=== PATIENT | female | born 1985 | race Two or more races ===

== ENCOUNTER 2024-08-02 08:54 | Inpatient (IN) | payer OTHER ==
[2024-08-02] VITALS (10 sets, daily range): BP systolic 115–163; BP diastolic 62–84; PULSE 72–90; RESP 19–22; TEMP 97.4–98.7; O2SAT 97–99
[~2024-08-02] VITALS: Ht 160 cm; Wt 84.8 kg
[2024-08-02 10:37] LABS: MEAN CORPUSCULAR HEMOGLOBIN 26.3 pg (26.0-34.0); MEAN CORPUSCULAR HGB CONC 30.5 G/dL (31.0-37.0); MEAN CORPUSCULAR VOLUME 86 fL (80-100); PLATELET COUNT (AUTO) 211 K/uL (150-450); RED BLOOD CELL COUNT(AUTO) 2.22 MIL/uL (4.00-5.20); RED CELL DISTRIBUTION WIDTH 16.1 % (11.5-14.5); WHITE BLOOD COUNT (AUTO) 13.7 K/uL (4.5-11.0)
[2024-08-02 10:42] LABS: ANION GAP 19 mmol/L (8-16); CARBON DIOXIDE 14 mmol/L (22-29); CHLORIDE 101 mmol/L (98-107); GLOMERULAR FILTR. RATE CALC 2 mL/min (>60); GLUCOSE,RANDOM 137 mg/dL (70-110); POTASSIUM 5.1 mmol/L (3.5-5.1); SODIUM SERUM 134 mmol/L (136-145)
[2024-08-02 10:45] LABS: HEMATOCRIT 19.1 % (36-46); HEMOGLOBIN 5.8 g/dL (12.0-16.0)
[2024-08-02 10:47] LABS: PROTHROMBIN TIME 10.9 SEC (9.4-11.6)
[2024-08-02 10:50] LABS: CREATINE KINASE, TOTAL ONLY 649 U/L (26-192); TROPONIN I-HIGH SENSITIVITY 38 ng/L (<51)
[2024-08-02 10:59] LABS: B-TYPE NATRIURETIC PEPTIDE 836 pg/mL (0-100)
[2024-08-02 11:02] LABS: BAND NEUTROPHILS % (MANUAL) 6 % (0-5); LYMPHOCYTES % (MANUAL) 8 % (22-44); METAMYELOCYTES % 3 % (0-0); MONOCYTES % (MANUAL) 5 % (2-9); MYELOCYTES % 1 % (0-0); SEGMENTED NEUTROPHILS % 77 % (40-70); TOTAL CELLS COUNTED 100
[2024-08-02 11:05] LABS: CALCIUM, TOTAL < 5.0 mg/dL (8.8-10.5); UREA NITROGEN, BLOOD 165 mg/dL (7-18)
[2024-08-02] MEDS ORDERED: DEXTROSE 50%-WATER 25 GM/50 ML SYRINGE IVP PRN (11:30)
[2024-08-02] MEDS ORDERED: FOLIC ACID/VIT B COMPLEX AND C TABLET PO SCH (11:45)
[2024-08-02] MEDS ORDERED: EPOETIN ALFA 10,000 UNITS/ML VIAL SQ SCH (12:00)
[2024-08-02 14:02] LABS: APPEARANCE,URINE TURBID (CLEAR); BILIRUBIN,URINE NEGATIVE (NEGATIVE); COLOR,URINE YELLOW (YELLOW); GLUCOSE, URINE (UA) 150-200 mg/dL (NEGATIVE); KETONES,URINE NEGATIVE (NEGATIVE); LEUKOCYTE ESTERASE ,URINE SMALL (NEGATIVE); NITRATE,URINE NEGATIVE (NEGATIVE); OCCULT BLOOD,URINE MODERATE (NEGATIVE); PROTEIN,URINE 300-600,SEE CONFIRM mg/dL (NEGATIVE); UROBILINOGEN,URINE <=1.0 mg/dL (<=1.0)
[2024-08-02 14:23] LABS: SULFOSALICYLIC ACID,URINE 3+ (Negative)
[2024-08-02 14:24] LABS: SQUAMOUS EPITHELIAL CELL,UR Moderate /LPF (None Seen)
[2024-08-02 14:27] LABS: BACTERIA,URINE Many /HPF (None Seen)
[2024-08-02] MEDS: CALCITRIOL 1 MCG/ML IVP SCH (16:53)
[2024-08-02] MEDS: SEVELAMER CARBONATE 800 MG TABLET PO ONE (16:53)
[2024-08-02] MEDS: CALCIUM GLUCONATE 0.465 MEQ/ML 10 ML VIAL IVP ONE (16:56)
[2024-08-02] MEDS: BUMETANIDE 0.25 MG/ML 4 ML VIAL IVP SCH (16:56)
[2024-08-02] MEDS: DOCUSATE SODIUM 100 MG CAPSULE PO SCH (21:00)
[2024-08-02] MEDS: INSULIN LISPRO 100 UNITS/ML SQ PRN (21:15)
[2024-08-02] MEDS: ACETAMINOPHEN 325 MG TABLET PO PRN (22:32)
[2024-08-02 23:45] LABS: GLUCOMETER DEV NAME(LOC) 6S.2; GLUCOSE,POINT OF CARE 176 MG/DL (70-110)
[2024-08-03] VITALS (16 sets, daily range): BP systolic 139–164; BP diastolic 63–83; PULSE 75–87; RESP 18–21; TEMP 97.3–99.3; O2SAT 95–96
[2024-08-03] MEDS: ONDANSETRON HCL 4 MG/2 ML VIAL IVP PRN (03:32)
[2024-08-03] MEDS: EPOETIN ALFA 10,000 UNITS/ML VIAL SQ ONE (06:38)
[2024-08-03 08:09] LABS: MEAN CORPUSCULAR HEMOGLOBIN 27.4 pg (26.0-34.0); MEAN CORPUSCULAR HGB CONC 31.8 G/dL (31.0-37.0); MEAN CORPUSCULAR VOLUME 86 fL (80-100); PLATELET COUNT (AUTO) 191 K/uL (150-450); RED BLOOD CELL COUNT(AUTO) 2.25 MIL/uL (4.00-5.20); RED CELL DISTRIBUTION WIDTH 15.7 % (11.5-14.5); WHITE BLOOD COUNT (AUTO) 12.5 K/uL (4.5-11.0)
[2024-08-03] MEDS: PANTOPRAZOLE SODIUM 40 MG DR TABLET PO SCH (08:09)
[2024-08-03] MEDS: FOLIC ACID/VIT B COMPLEX AND C TABLET PO SCH (08:10)
[2024-08-03 08:14] LABS: HEMOGLOBIN 6.2 g/dL (12.0-16.0)
[2024-08-03 08:15] LABS: HEMATOCRIT 19.4 % (36-46)
[2024-08-03 08:26] LABS: GLUCOMETER DEV NAME(LOC) 6S.1D; GLUCOSE,POINT OF CARE 200 MG/DL (70-110)
[2024-08-03] MEDS ORDERED: SODIUM CHLORIDE 0.9% 1,000 ML ONE (08:57)
[2024-08-03 09:41] LABS: BAND NEUTROPHILS % (MANUAL) 8 % (0-5); LYMPHOCYTES % (MANUAL) 7 % (22-44); METAMYELOCYTES % 2 % (0-0); MONOCYTES % (MANUAL) 5 % (2-9); SEGMENTED NEUTROPHILS % 78 % (40-70); TOTAL CELLS COUNTED 100
[2024-08-03 09:42] LABS: RBC MORPHOLOGY COMMENT ABNORMAL R
[2024-08-03] MEDS: GENTAMICIN SULFATE 0.1% 15 GM CREAM TP SCH (11:10)
[2024-08-03 12:06] LABS: GLUCOMETER DEV NAME(LOC) 6S.1D; GLUCOSE,POINT OF CARE 134 MG/DL (70-110)
[2024-08-03] MEDS: AmLODIPine BESYLATE 5 MG TABLET PO SCH (13:10)
[2024-08-03 14:37] LABS: HEMATOCRIT 22.1 % (36-46); HEMOGLOBIN 7.1 g/dL (12.0-16.0); MEAN CORPUSCULAR HEMOGLOBIN 27.6 pg (26.0-34.0); MEAN CORPUSCULAR HGB CONC 31.9 G/dL (31.0-37.0); MEAN CORPUSCULAR VOLUME 86 fL (80-100); PLATELET COUNT (AUTO) 185 K/uL (150-450); RED BLOOD CELL COUNT(AUTO) 2.56 MIL/uL (4.00-5.20); RED CELL DISTRIBUTION WIDTH 15.6 % (11.5-14.5); WHITE BLOOD COUNT (AUTO) 12.3 K/uL (4.5-11.0)
[2024-08-03 15:03] LABS: RBC MORPHOLOGY COMMENT ABNORMAL R
[2024-08-03 15:05] LABS: BAND NEUTROPHILS % (MANUAL) 7 % (0-5); LYMPHOCYTES % (MANUAL) 10 % (22-44); METAMYELOCYTES % 2 % (0-0); MONOCYTES % (MANUAL) 4 % (2-9); SEGMENTED NEUTROPHILS % 77 % (40-70); TOTAL CELLS COUNTED 100
[2024-08-03 18:46] LABS: GLUCOMETER DEV NAME(LOC) 6S.1D; GLUCOSE,POINT OF CARE 126 MG/DL (70-110)
[2024-08-03 21:21] LABS: GLUCOMETER DEV NAME(LOC) 6S.1D; GLUCOSE,POINT OF CARE 200 MG/DL (70-110)
[2024-08-04 06:04] VITALS: BP 142/87; PULSE 73; RESP 20; TEMP 97.5; O2SAT 98
[2024-08-04 06:40] LABS: BASOPHILS % (AUTO) 0.2 % (0.0-2.0); EOSINOPHILS % (AUTO) 0.8 % (1.0-6.0); HEMOGLOBIN 7.1 g/dL (12.0-16.0); LYMPHOCYTES # (AUTO) 0.7 K/uL (1.0-4.8); LYMPHOCYTES % (AUTO) 7.6 % (22.0-44.0); MEAN CORPUSCULAR HEMOGLOBIN 28.7 pg (26.0-34.0); MEAN CORPUSCULAR HGB CONC 33.6 G/dL (31.0-37.0); MEAN CORPUSCULAR VOLUME 85 fL (80-100); MONOCYTES # (AUTO) 0.7 K/uL (0.1-1.0); MONOCYTES % (AUTO) 7.7 % (2.0-9.0); NEUTROPHILS # (AUTO) 8.1 K/uL (1.8-7.7); NEUTROPHILS % (AUTO) 83.7 % (40.0-70.0); PLATELET COUNT (AUTO) 180 K/uL (150-450); RED BLOOD CELL COUNT(AUTO) 2.47 MIL/uL (4.00-5.20); RED CELL DISTRIBUTION WIDTH 15.8 % (11.5-14.5); WHITE BLOOD COUNT (AUTO) 9.7 K/uL (4.5-11.0)
[2024-08-04 08:05] VITALS: BP 148/65; PULSE 74; RESP 18; TEMP 98.1; O2SAT 96
[2024-08-04 08:46] LABS: GLUCOMETER DEV NAME(LOC) 6S.2; GLUCOSE,POINT OF CARE 132 MG/DL (70-110)
[2024-08-04 14:35] LABS: GLUCOMETER DEV NAME(LOC) 6S.1D; GLUCOSE,POINT OF CARE 134 MG/DL (70-110)
[2024-08-04 16:00] VITALS: BP 147/75; PULSE 80; RESP 18; TEMP 97.7
[2024-08-04 16:15] VITALS: BP 149/79; RESP 19
[2024-08-04 17:05] VITALS: BP 147/70; PULSE 73; RESP 18; O2SAT 96
[2024-08-04 19:20] VITALS: BP 154/67; PULSE 80; RESP 18; TEMP 98.4; O2SAT 95
[2024-08-05 04:56] VITALS: BP 156/72; PULSE 71; RESP 18; TEMP 98.1; O2SAT 98
[2024-08-05 06:01] LABS: GLUCOMETER DEV NAME(LOC) 6S.1D; GLUCOSE,POINT OF CARE 186 MG/DL (70-110)
[2024-08-05 06:01] LABS: GLUCOMETER DEV NAME(LOC) 6S.1D; GLUCOSE,POINT OF CARE 183 MG/DL (70-110)
[2024-08-05 06:01] LABS: GLUCOMETER DEV NAME(LOC) 6S.1D; GLUCOSE,POINT OF CARE 200 MG/DL (70-110)
[2024-08-05 07:20] LABS: BASOPHILS % (AUTO) 0.4 % (0.0-2.0); EOSINOPHILS % (AUTO) 0.6 % (1.0-6.0); HEMATOCRIT 22.8 % (36-46); HEMOGLOBIN 7.5 g/dL (12.0-16.0); LYMPHOCYTES # (AUTO) 0.6 K/uL (1.0-4.8); MEAN CORPUSCULAR HEMOGLOBIN 28.1 pg (26.0-34.0); MEAN CORPUSCULAR VOLUME 85 fL (80-100); MONOCYTES # (AUTO) 0.8 K/uL (0.1-1.0); MONOCYTES % (AUTO) 8.6 % (2.0-9.0); NEUTROPHILS # (AUTO) 7.7 K/uL (1.8-7.7); NEUTROPHILS % (AUTO) 83.4 % (40.0-70.0); PLATELET COUNT (AUTO) 214 K/uL (150-450); RED BLOOD CELL COUNT(AUTO) 2.68 MIL/uL (4.00-5.20); RED CELL DISTRIBUTION WIDTH 15.6 % (11.5-14.5); WHITE BLOOD COUNT (AUTO) 9.3 K/uL (4.5-11.0)
[2024-08-05 07:47] LABS: CREATININE 14.04 mg/dL (0.60-1.30); PHOSPHORUS 7.7 mg/dL (2.5-4.9); POTASSIUM 3.6 mmol/L (3.5-5.1)
[2024-08-05 08:00] VITALS: BP 155/72; PULSE 76; RESP 19; TEMP 98.2; O2SAT 96
[2024-08-05 08:16] LABS: CALCIUM, TOTAL 5.4 mg/dL (8.8-10.5)
[2024-08-05] MEDS ORDERED: SODIUM CHLORIDE 0.9% 250 ML IV ONE (11:16)
[2024-08-05] MEDS: CALCIUM GLUCONATE 2,000 MG in DEXTROSE 5%-WATER 50 ML IV ONE (11:31)
[2024-08-05 12:25] LABS: GLUCOMETER DEV NAME(LOC) 6S.1D; GLUCOSE,POINT OF CARE 154 MG/DL (70-110)
[2024-08-05] MEDS: CYCLOBENZAPRINE HCL 10 MG TABLET PO SCH (15:57)
[2024-08-05 16:05] VITALS: BP 155/72; PULSE 76; RESP 18; TEMP 98.2; O2SAT 97
[2024-08-05 16:30] VITALS: BP 155/72; PULSE 76; RESP 18; TEMP 98.2; O2SAT 97
[2024-08-05 19:27] VITALS: BP 158/73; PULSE 85; RESP 18; TEMP 98.2; O2SAT 98
[2024-08-06 03:30] VITALS: BP 154/74; PULSE 77; RESP 20; TEMP 98.1; O2SAT 96
[2024-08-06 07:29] LABS: CREATININE 13.79 mg/dL (0.60-1.30); POTASSIUM 3.3 mmol/L (3.5-5.1)
[2024-08-06 07:33] LABS: CALCIUM, TOTAL 5.7 mg/dL (8.8-10.5)
[2024-08-06 08:07] LABS: PARATHYROID HORMONE INTACT 145 pg/mL (15-65)
[2024-08-06 08:25] VITALS: BP 155/79; PULSE 79; RESP 18; TEMP 98.6; O2SAT 98
[2024-08-06] MEDS: AmLODIPine BESYLATE 10 MG TABLET PO SCH (08:28)
[2024-08-06] MEDS: CALCIUM CARBONATE 500 MG CHEWABLE TABLET CHEW SCH ×2 (09:54→20:16)
[2024-08-06] MEDS: CALCIUM GLUCONATE 2,000 MG in DEXTROSE 5%-WATER 50 ML IV ONE (10:46)
[2024-08-06 11:35] LABS: GLUCOMETER DEV NAME(LOC) 6S.1D; GLUCOSE,POINT OF CARE 187 MG/DL (70-110)
[2024-08-06 11:35] LABS: GLUCOMETER DEV NAME(LOC) 6S.1D; GLUCOSE,POINT OF CARE 213 MG/DL (70-110)
[2024-08-06] MEDS: POTASSIUM CHL 10 MEQ/WATER 50 ML IV SCH (17:24)
[2024-08-06] MEDS: FOLIC ACID/VIT B COMPLEX AND C TABLET PO SCH (17:24)
[2024-08-06 19:41] VITALS: BP 155/80; PULSE 96; RESP 18; TEMP 98.4; O2SAT 98
[2024-08-06 20:26] LABS: GLUCOMETER DEV NAME(LOC) 6N.2B; GLUCOSE,POINT OF CARE 167 MG/DL (70-110)
[2024-08-06 22:16] VITALS: BP 141/76; PULSE 84; RESP 20; TEMP 98.7; O2SAT 96
[2024-08-06 23:25] LABS: GLUCOMETER DEV NAME(LOC) 6S.1D; GLUCOSE,POINT OF CARE 150 MG/DL (70-110)
[2024-08-06 23:30] LABS: GLUCOMETER DEV NAME(LOC) 6S.2; GLUCOSE,POINT OF CARE 148 MG/DL (70-110)
[2024-08-06 23:30] LABS: GLUCOMETER DEV NAME(LOC) 6S.2; GLUCOSE,POINT OF CARE 137 MG/DL (70-110)
[2024-08-07 04:05] VITALS: BP 147/79; PULSE 83; RESP 18; TEMP 98.1; O2SAT 98
[2024-08-07 07:05] LABS: GLUCOMETER DEV NAME(LOC) 6S.2; GLUCOSE,POINT OF CARE 172 MG/DL (70-110)
[2024-08-07 07:58] LABS: CALCIUM, TOTAL 6.2 mg/dL (8.8-10.5); CREATININE 13.52 mg/dL (0.60-1.30); MAGNESIUM 1.6 mg/dL (1.80-2.40); PHOSPHORUS 6.5 mg/dL (2.5-4.9)
[2024-08-07 10:12] LABS: BASOPHILS % (AUTO) 0.6 % (0.0-2.0); EOSINOPHILS % (AUTO) 0.4 % (1.0-6.0); HEMATOCRIT 24.9 % (36-46); HEMOGLOBIN 8.2 g/dL (12.0-16.0); LYMPHOCYTES # (AUTO) 0.9 K/uL (1.0-4.8); LYMPHOCYTES % (AUTO) 10.2 % (22.0-44.0); MEAN CORPUSCULAR HEMOGLOBIN 28.4 pg (26.0-34.0); MEAN CORPUSCULAR HGB CONC 33.1 G/dL (31.0-37.0); MEAN CORPUSCULAR VOLUME 86 fL (80-100); MONOCYTES # (AUTO) 0.7 K/uL (0.1-1.0); MONOCYTES % (AUTO) 8.6 % (2.0-9.0); NEUTROPHILS # (AUTO) 6.7 K/uL (1.8-7.7); NEUTROPHILS % (AUTO) 80.2 % (40.0-70.0); PLATELET COUNT (AUTO) 249 K/uL (150-450); RED CELL DISTRIBUTION WIDTH 15.3 % (11.5-14.5); WHITE BLOOD COUNT (AUTO) 8.4 K/uL (4.5-11.0)
[2024-08-07] MEDS: MAGNESIUM OXIDE 400 MG TABLET PO ONE (10:57)
[2024-08-07 11:45] LABS: GLUCOMETER DEV NAME(LOC) 6N.2B; GLUCOSE,POINT OF CARE 200 MG/DL (70-110)
[2024-08-07 16:35] VITALS: BP 145/78; PULSE 94; RESP 18; TEMP 98.1; O2SAT 96
[2024-08-07 16:40] VITALS: BP 145/78; PULSE 93; RESP 21; O2SAT 96
[2024-08-07] MEDS: MAGNESIUM SULFATE 1 GM in DEXTROSE 5%-WATER 50 ML IV ONE (18:16)
[2024-08-07 20:10] VITALS: BP 148/78; PULSE 92; RESP 18; TEMP 98.1; O2SAT 68
[2024-08-07 20:20] LABS: GLUCOMETER DEV NAME(LOC) 6N.2B; GLUCOSE,POINT OF CARE 164 MG/DL (70-110)
[2024-08-08 04:51] LABS: GLUCOMETER DEV NAME(LOC) 6S.2; GLUCOSE,POINT OF CARE 168 MG/DL (70-110)
[2024-08-08 07:11] LABS: GLUCOMETER DEV NAME(LOC) 6N.2B; GLUCOSE,POINT OF CARE 130 MG/DL (70-110)
[2024-08-08 07:59] LABS: CREATININE 12.81 mg/dL (0.60-1.30); MAGNESIUM 1.7 mg/dL (1.80-2.40); PHOSPHORUS 6.1 mg/dL (2.5-4.9); POTASSIUM 3.8 mmol/L (3.5-5.1)
[2024-08-08 08:13] VITALS: BP 142/82; PULSE 84; RESP 18; TEMP 98.1; O2SAT 94
[2024-08-08] MEDS: CALCIUM ACETATE 667 MG CAPSULE PO SCH (16:58)
[2024-08-08 17:46] LABS: GLUCOMETER DEV NAME(LOC) 6N.2B; GLUCOSE,POINT OF CARE 158 MG/DL (70-110)
[2024-08-08 18:45] VITALS: BP 144/77; PULSE 88; RESP 18; TEMP 98.2; O2SAT 94
[2024-08-08 18:50] VITALS: BP 144/77; PULSE 88; RESP 18; O2SAT 95
[2024-08-08 19:20] VITALS: BP 155/68; PULSE 88; RESP 18; TEMP 97.9; O2SAT 97
[2024-08-08 20:20] LABS: GLUCOMETER DEV NAME(LOC) 6S.2; GLUCOSE,POINT OF CARE 132 MG/DL (70-110)
[2024-08-08] MEDS: BUMETANIDE 0.25 MG/ML 4 ML VIAL IVP SCH (20:21)
[2024-08-08 23:26] LABS: GLUCOMETER DEV NAME(LOC) 6S.1D; GLUCOSE,POINT OF CARE 174 MG/DL (70-110)
[2024-08-09 04:00] VITALS: BP 149/76; PULSE 83; RESP 18; TEMP 98.2; O2SAT 95
[2024-08-09 07:52] VITALS: BP 136/61; PULSE 83; RESP 18; TEMP 98.2; O2SAT 100
[2024-08-09 08:51] LABS: GLUCOMETER DEV NAME(LOC) 6S.1D; GLUCOSE,POINT OF CARE 160 MG/DL (70-110)
[2024-08-09 14:31] LABS: GLUCOMETER DEV NAME(LOC) 6S.1D; GLUCOSE,POINT OF CARE 149 MG/DL (70-110)
[2024-08-09 19:30] VITALS: BP 136/70; PULSE 88; RESP 18; TEMP 98.1; O2SAT 96
[2024-08-09 19:40] VITALS: BP 138/72; PULSE 88; RESP 18; O2SAT 96
[2024-08-09 20:05] LABS: GLUCOMETER DEV NAME(LOC) 6N.2B; GLUCOSE,POINT OF CARE 139 MG/DL (70-110)
[2024-08-09 20:14] VITALS: BP 149/76; PULSE 88; RESP 19; TEMP 97.7; O2SAT 98
[2024-08-10 00:31] LABS: GLUCOMETER DEV NAME(LOC) 6S.1D; GLUCOSE,POINT OF CARE 196 MG/DL (70-110)
[2024-08-10 04:51] VITALS: BP 138/67; PULSE 79; RESP 18; TEMP 97.7; O2SAT 96
[2024-08-10 07:00] VITALS: BP 156/71; PULSE 81; RESP 19; TEMP 97.9; O2SAT 99
[2024-08-10 07:55] LABS: GLUCOMETER DEV NAME(LOC) 6S.1D; GLUCOSE,POINT OF CARE 133 MG/DL (70-110)
[2024-08-10 15:31] LABS: GLUCOMETER DEV NAME(LOC) 6S.2; GLUCOSE,POINT OF CARE 159 MG/DL (70-110)
[2024-08-10 19:50] VITALS: BP 143/71; PULSE 85; RESP 18; TEMP 97.9; O2SAT 98
[2024-08-10 20:10] LABS: GLUCOMETER DEV NAME(LOC) 6S.2; GLUCOSE,POINT OF CARE 107 MG/DL (70-110)
[2024-08-10] MEDS: BUMETANIDE 1 MG TABLET PO SCH (20:37)
[2024-08-10 22:45] VITALS: BP 143/71; PULSE 85; RESP 18; TEMP 97.9; O2SAT 98
[2024-08-10 23:15] VITALS: BP 143/71; PULSE 85; RESP 18; O2SAT 98
[2024-08-10] MEDS: ONDANSETRON 4 MG TABLET PO PRN (23:45)
[2024-08-11 04:10] VITALS: BP 107/58; PULSE 80; RESP 16; TEMP 97.7; O2SAT 96
[2024-08-11 06:05] LABS: GLUCOMETER DEV NAME(LOC) 6S.2; GLUCOSE,POINT OF CARE 144 MG/DL (70-110)
[2024-08-11 06:05] LABS: GLUCOMETER DEV NAME(LOC) 6S.1D; GLUCOSE,POINT OF CARE 143 MG/DL (70-110)
[2024-08-11] MEDS: AmLODIPine BESYLATE 5 MG TABLET PO SCH ×2 (09:00→20:51)
[2024-08-11 10:13] VITALS: BP 170/86; PULSE 82; RESP 18; O2SAT 95
[2024-08-11] MEDS: PROCHLORPERAZINE EDISYLATE 5 MG/ML 2 ML VIAL IVP PRN (10:26)
[2024-08-11] MEDS ORDERED: SODIUM BICARBONATE 50 MEQ/50 ML VIAL ONE (10:36)
[2024-08-11] MEDS ORDERED: LIDOCAINE/PF 1% 30 ML VIAL ONE (10:36)
[2024-08-11 15:30] VITALS: BP_SYST 128; BP_SYST 129; BP_DIAS 69; BP_DIAS 70; PULSE 78; PULSE 79; RESP 18; TEMP 99.9; O2SAT 97; O2SAT 98
[2024-08-11 16:23] VITALS: TEMP 97.9
[2024-08-11 17:20] LABS: GLUCOMETER DEV NAME(LOC) 6S.2; GLUCOSE,POINT OF CARE 151 MG/DL (70-110)
[2024-08-11] MEDS: CALCITRIOL 0.25 MCG CAPSULE PO SCH (17:21)
[2024-08-11 19:55] LABS: GLUCOMETER DEV NAME(LOC) 6N.2B; GLUCOSE,POINT OF CARE 117 MG/DL (70-110)
[2024-08-11 20:07] VITALS: BP 155/87; PULSE 81; RESP 18; TEMP 98.1; O2SAT 96
[2024-08-12] VITALS (16 sets, daily range): BP systolic 138–188; BP diastolic 68–113; PULSE 73–91; RESP 18–19; TEMP 97.9–98.4; O2SAT 95–97
[2024-08-12] MEDS ORDERED: LIDOCAINE/PF 1% 30 ML VIAL ONE (08:12)
[2024-08-12] MEDS ORDERED: SODIUM BICARBONATE 50 MEQ/50 ML VIAL ONE (08:12)
[2024-08-12] MEDS: BUMETANIDE 1 MG TABLET PO SCH (08:19)
[2024-08-12] MEDS: AmLODIPine BESYLATE 5 MG TABLET PO SCH (08:20)
[2024-08-12] MEDS ORDERED: MIDAZOLAM HCL 2 MG/2 ML VIAL ONE (08:36)
[2024-08-12] MEDS ORDERED: FentaNYL CITRATE PF 100 MCG/2 ML VIAL ONE (08:36)
[2024-08-12] MEDS: LIDOCAINE 1% 30 ML/SOD BICARB 8.4% 4 ML SQ ONE (09:05)
[2024-08-12] MEDS: MIDAZOLAM HCL 2 MG/2 ML VIAL IVP ONE (09:06)
[2024-08-12] MEDS: FentaNYL CITRATE PF 100 MCG/2 ML VIAL IVP ONE (09:06)
[2024-08-12] MEDS: HEPARIN SODIUM,PORCINE 1,000 UNITS/ML 10 ML VIAL IVP ONE ×2 (09:17→09:27)
[2024-08-12] MEDS: SODIUM CHLORIDE 0.9% 500 ML IV ONE (09:17)
[2024-08-12 11:16] LABS: GLUCOMETER DEV NAME(LOC) 6N.2B; GLUCOSE,POINT OF CARE 116 MG/DL (70-110)
[2024-08-12 11:16] LABS: GLUCOMETER DEV NAME(LOC) 6N.2B; GLUCOSE,POINT OF CARE 170 MG/DL (70-110)
[2024-08-12] MEDS ORDERED: HEPARIN SODIUM,PORCINE 1,000 UNITS/ML VIAL ONE (12:00)
[2024-08-12] MEDS: ACETAMINOPHEN/CODEINE 300-30 MG TABLET PO PRN (16:28)
[2024-08-12] MEDS: AmLODIPine BESYLATE 5 MG TABLET PO ONE (17:53)
[2024-08-12] MEDS: CloNIDine HCL 0.1 MG TABLET PO PRN (18:34)
[2024-08-12 20:10] LABS: GLUCOMETER DEV NAME(LOC) 6S.1D; GLUCOSE,POINT OF CARE 113 MG/DL (70-110)
[2024-08-13 04:40] VITALS: BP 170/74; PULSE 76; RESP 19; TEMP 97.8; O2SAT 96
[2024-08-13 07:15] LABS: GLUCOMETER DEV NAME(LOC) 6S.2; GLUCOSE,POINT OF CARE 109 MG/DL (70-110)
[2024-08-13 07:15] LABS: GLUCOMETER DEV NAME(LOC) 6S.2; GLUCOSE,POINT OF CARE 134 MG/DL (70-110)
[2024-08-13 07:15] LABS: GLUCOMETER DEV NAME(LOC) 6S.2; GLUCOSE,POINT OF CARE 140 MG/DL (70-110)
[2024-08-13] MEDS: AmLODIPine BESYLATE 10 MG TABLET PO SCH (08:48)
[2024-08-13 09:36] VITALS: BP 177/77; PULSE 67; RESP 18; TEMP 97.7; O2SAT 98
[2024-08-13 09:54] VITALS: BP 147/72; RESP 18; O2SAT 96
[2024-08-13] MEDS: METOCLOPRAMIDE HCL 5 MG/ML 2 ML VIAL IVP ONE (15:45)
[2024-08-13 17:20] LABS: GLUCOMETER DEV NAME(LOC) 6S.1D; GLUCOSE,POINT OF CARE 126 MG/DL (70-110)
[2024-08-13 19:52] VITALS: BP 163/75; PULSE 73; RESP 18; TEMP 98.4; O2SAT 99
[2024-08-13 20:15] LABS: GLUCOMETER DEV NAME(LOC) 6S.2; GLUCOSE,POINT OF CARE 118 MG/DL (70-110)
[2024-08-14] VITALS (13 sets, daily range): BP systolic 136–184; BP diastolic 73–101; PULSE 69–81; RESP 18–20; TEMP 97.7–98.2; O2SAT 95–98
[2024-08-14 06:55] LABS: GLUCOMETER DEV NAME(LOC) 6S.2; GLUCOSE,POINT OF CARE 110 MG/DL (70-110)
[2024-08-14 07:51] LABS: GLUCOMETER DEV NAME(LOC) 6S.1D; GLUCOSE,POINT OF CARE 94 MG/DL (70-110)
[2024-08-14] MEDS ORDERED: SODIUM CHLORIDE 0.9% 1,000 ML ONE (10:57)
[2024-08-14 12:21] LABS: CREATININE 7.08 mg/dL (0.60-1.30); POTASSIUM 3.9 mmol/L (3.5-5.1)
[2024-08-14 12:22] LABS: MAGNESIUM 1.8 mg/dL (1.80-2.40); PHOSPHORUS 4.3 mg/dL (2.5-4.9)
[2024-08-14] MEDS: HEPARIN SODIUM,PORCINE 1,000 UNITS/ML VIAL IVCATH ONE ×2 (17:30→21:40)
[2024-08-14] MEDS ORDERED: PIPERACILLIN SODIUM/TAZOBACTAM 0.75 GM in DEXTROSE 5%-WATER 50 ML IV PRN (17:45)
[2024-08-14] MEDS ORDERED: VANCOMYCIN HCL 1 GM/D5% WATER 200 ML IV PRN (17:45)
[2024-08-14 17:59] LABS: BASOPHILS % (AUTO) 0.7 % (0.0-2.0); HEMATOCRIT 24.2 % (36-46); LYMPHOCYTES # (AUTO) 0.9 K/uL (1.0-4.8); MEAN CORPUSCULAR HEMOGLOBIN 28.4 pg (26.0-34.0); MEAN CORPUSCULAR HGB CONC 33.2 G/dL (31.0-37.0); MEAN CORPUSCULAR VOLUME 86 fL (80-100); MONOCYTES # (AUTO) 0.4 K/uL (0.1-1.0); MONOCYTES % (AUTO) 9.3 % (2.0-9.0); NEUTROPHILS # (AUTO) 3.4 K/uL (1.8-7.7); PLATELET COUNT (AUTO) 237 K/uL (150-450); RED BLOOD CELL COUNT(AUTO) 2.83 MIL/uL (4.00-5.20); RED CELL DISTRIBUTION WIDTH 15.2 % (11.5-14.5); WHITE BLOOD COUNT (AUTO) 4.8 K/uL (4.5-11.0)
[2024-08-14 18:09] LABS: CALCIUM, TOTAL 8.3 mg/dL (8.8-10.5); CREATININE 6.04 mg/dL (0.60-1.30); POTASSIUM 4.3 mmol/L (3.5-5.1)
[2024-08-14] MEDS: VANCOMYCIN HCL 1 GM/D5% WATER 200 ML IV ONE (19:10)
[2024-08-14] MEDS ORDERED: SODIUM CHLORIDE 0.9% 500 ML IV ONE (20:59)
[2024-08-14] MEDS: PIPERACILLIN SODIUM/TAZOBACTAM 2.25 GM in DEXTROSE 5%-WATER 50 ML IV SCH (21:27)
[2024-08-14] MEDS ORDERED: HEPARIN SODIUM,PORCINE 1,000 UNITS/ML VIAL IVP ONE (23:10)
[2024-08-15] VITALS: BP 160/80; PULSE 71; RESP 18; TEMP 97.9; O2SAT 96
[2024-08-15 04:50] VITALS: BP 166/76; PULSE 68; RESP 18; TEMP 98.1; O2SAT 99
[2024-08-15] MEDS ORDERED: -POST HEMODIALYSIS NOTE- MISC SCH (09:00)
[2024-08-15 09:24] VITALS: BP 143/66; PULSE 80; RESP 18; TEMP 98.1; O2SAT 98
[2024-08-15 12:00] LABS: GLUCOMETER DEV NAME(LOC) 6S.1D; GLUCOSE,POINT OF CARE 153 MG/DL (70-110)
[2024-08-15 18:30] LABS: GLUCOMETER DEV NAME(LOC) 6S.2; GLUCOSE,POINT OF CARE 103 MG/DL (70-110)
[2024-08-15 18:36] LABS: GLUCOMETER DEV NAME(LOC) 6S.1D; GLUCOSE,POINT OF CARE 101 MG/DL (70-110)
[2024-08-15 18:36] LABS: GLUCOMETER DEV NAME(LOC) 6N.2B; GLUCOSE,POINT OF CARE 115 MG/DL (70-110)
[2024-08-15 19:45] VITALS: BP 142/66; PULSE 81; RESP 18; TEMP 98.2; O2SAT 98
[2024-08-15 21:55] LABS: GLUCOMETER DEV NAME(LOC) 6N.2B; GLUCOSE,POINT OF CARE 141 MG/DL (70-110)
[2024-08-16 04:10] VITALS: BP 157/66; PULSE 80; RESP 18; TEMP 98; O2SAT 98
[2024-08-16 07:20] LABS: GLUCOMETER DEV NAME(LOC) 6S.1D; GLUCOSE,POINT OF CARE 96 MG/DL (70-110)
[2024-08-16 07:30] VITALS: BP 162/80; PULSE 85; RESP 18; TEMP 98.2; O2SAT 98
[2024-08-16] MEDS: VANCOMYCIN HCL 1 GM/D5% WATER 200 ML IV ONE (11:29)
[2024-08-16 18:40] LABS: GLUCOMETER DEV NAME(LOC) 6S.1D; GLUCOSE,POINT OF CARE 124 MG/DL (70-110)
[2024-08-16 18:46] LABS: GLUCOMETER DEV NAME(LOC) 6N.2B; GLUCOSE,POINT OF CARE 122 MG/DL (70-110)
[2024-08-16 19:23] VITALS: BP 151/68; PULSE 80; RESP 18; TEMP 98.6; O2SAT 96
[2024-08-16 21:45] LABS: GLUCOMETER DEV NAME(LOC) 6N.2B; GLUCOSE,POINT OF CARE 152 MG/DL (70-110)
[2024-08-17] VITALS (13 sets, daily range): BP systolic 149–178; BP diastolic 64–88; PULSE 80–101; RESP 18–20; TEMP 97.7–98.4; O2SAT 97–98
[2024-08-17 08:35] LABS: GLUCOMETER DEV NAME(LOC) 6N.2B; GLUCOSE,POINT OF CARE 89 MG/DL (70-110)
[2024-08-17] MEDS ORDERED: SODIUM CHLORIDE 0.9% 2,000 ML ONE (18:00)
[2024-08-17 18:05] LABS: GLUCOMETER DEV NAME(LOC) 6N.2B; GLUCOSE,POINT OF CARE 111 MG/DL (70-110)
[2024-08-17 18:16] LABS: GLUCOMETER DEV NAME(LOC) 6S.1D; GLUCOSE,POINT OF CARE 115 MG/DL (70-110)
[2024-08-17] MEDS: HEPARIN SODIUM,PORCINE 1,000 UNITS/ML VIAL IVCATH ONE ×2 (22:21)
[2024-08-17 23:26] LABS: GLUCOMETER DEV NAME(LOC) 6S.1D; GLUCOSE,POINT OF CARE 169 MG/DL (70-110)
[2024-08-18 06:24] VITALS: BP 170/87; PULSE 87; RESP 18; TEMP 99; O2SAT 99
[2024-08-18 06:54] VITALS: BP 158/68; PULSE 77; RESP 16; TEMP 98.9; O2SAT 99
[2024-08-18 08:56] VITALS: BP 154/78; PULSE 74; RESP 18; TEMP 98.1; O2SAT 98
[2024-08-18 11:36] LABS: GLUCOMETER DEV NAME(LOC) 6N.2B; GLUCOSE,POINT OF CARE 106 MG/DL (70-110)
[2024-08-18 12:30] LABS: GLUCOMETER DEV NAME(LOC) 6S.1D; GLUCOSE,POINT OF CARE 109 MG/DL (70-110)
[2024-08-18] MEDS ORDERED: AMLO-258 PO (16:23)
[2024-08-18] MEDS ORDERED: BUME1TAB50 PO (16:25)
[2024-08-18] MEDS ORDERED: PHOSLOC PO (16:26)
[2024-08-18] MEDS ORDERED: CALC0.5C11 PO (16:26)
[2024-08-18] MEDS ORDERED: PANT-31 PO (16:27)
[2024-08-18] MEDS ORDERED: FOLI0.8T54 PO (16:27)
[2024-08-18] MEDS ORDERED: CALC500T37 PO (16:27)
[2024-08-18] MEDS ORDERED: PIPE2.2562 IV (16:28)
[2024-08-18] MEDS ORDERED: ACET-2247 PO (16:29)
[2024-08-18] MEDS ORDERED: CLON0.1T2 PO (16:30)
[2024-08-18] MEDS ORDERED: INSU100V SQ (16:35)
[2024-08-18] MEDS ORDERED: ONDA-104 PO (16:36)
[2024-08-18] MEDS ORDERED: PROC5TAB54 IVP (16:37)
[2024-08-18] MEDS ORDERED: VANC125C19 IV (16:41)
[2024-08-19 11:45] LABS: GLUCOMETER DEV NAME(LOC) 6N.2B; GLUCOSE,POINT OF CARE 130 MG/DL (70-110)
== END 2024-08-18 20:55 | DRG 640 ==
LOC: EMS 08:59 → EDH 18:11 → 6S 18:48
PROVIDERS: ADMIT Internal Medicine; ATTEND Internal Medicine
PROC: 30233N1 Transfusion of Nonautologous Red Blood Cells into Peripheral Vein, Percutaneous Approach (ICD-10-PCS; principal; 2024-08-02)
PROC: 3E1M39Z Irrigation of Peritoneal Cavity using Dialysate, Percutaneous Approach (ICD-10-PCS; 2024-08-02)
PROC: 3E1M39Z Irrigation of Peritoneal Cavity using Dialysate, Percutaneous Approach (ICD-10-PCS; 2024-08-03)
PROC: 3E1M39Z Irrigation of Peritoneal Cavity using Dialysate, Percutaneous Approach (ICD-10-PCS; 2024-08-04)
PROC: 3E1M39Z Irrigation of Peritoneal Cavity using Dialysate, Percutaneous Approach (ICD-10-PCS; 2024-08-05)
PROC: 3E1M39Z Irrigation of Peritoneal Cavity using Dialysate, Percutaneous Approach (ICD-10-PCS; 2024-08-06)
PROC: 3E1M39Z Irrigation of Peritoneal Cavity using Dialysate, Percutaneous Approach (ICD-10-PCS; 2024-08-07)
PROC: 3E1M39Z Irrigation of Peritoneal Cavity using Dialysate, Percutaneous Approach (ICD-10-PCS; 2024-08-08)
PROC: 3E1M39Z Irrigation of Peritoneal Cavity using Dialysate, Percutaneous Approach (ICD-10-PCS; 2024-08-09)
PROC: 3E1M39Z Irrigation of Peritoneal Cavity using Dialysate, Percutaneous Approach (ICD-10-PCS; 2024-08-10)
PROC: 3E1M39Z Irrigation of Peritoneal Cavity using Dialysate, Percutaneous Approach (ICD-10-PCS; 2024-08-11)
PROC: 0JH63XZ Insertion of Tunneled Vascular Access Device into Chest Subcutaneous Tissue and Fascia, Percutaneous Approach (ICD-10-PCS; 2024-08-12)
PROC: 02HV33Z Insertion of Infusion Device into Superior Vena Cava, Percutaneous Approach (ICD-10-PCS; 2024-08-12)
PROC: B548ZZA Ultrasonography of Superior Vena Cava, Guidance (ICD-10-PCS; 2024-08-12)
PROC: 5A1D70Z Performance of Urinary Filtration, Intermittent, Less than 6 Hours Per Day (ICD-10-PCS; 2024-08-12)
PROC: 5A1D70Z Performance of Urinary Filtration, Intermittent, Less than 6 Hours Per Day (ICD-10-PCS; 2024-08-14)
PROC: 5A1D70Z Performance of Urinary Filtration, Intermittent, Less than 6 Hours Per Day (ICD-10-PCS; 2024-08-17)
DX: E87.70 Fluid overload, unspecified (principal); N18.6 End stage renal disease; E11.52 Type 2 diabetes mellitus with diabetic peripheral angiopathy with gangrene; I12.0 Hypertensive chronic kidney disease with stage 5 chronic kidney disease or end stage renal disease; M86.8X7 Other osteomyelitis, ankle and foot; L97.419 Non-pressure chronic ulcer of right heel and midfoot with unspecified severity; E87.1 Hypo-osmolality and hyponatremia; E87.20 Acidosis, unspecified; E11.69 Type 2 diabetes mellitus with other specified complication; E11.22 Type 2 diabetes mellitus with diabetic chronic kidney disease; E11.621 Type 2 diabetes mellitus with foot ulcer; Z99.2 Dependence on renal dialysis; D63.1 Anemia in chronic kidney disease; N25.0 Renal osteodystrophy; E66.9 Obesity, unspecified; E83.39 Other disorders of phosphorus metabolism; E83.51 Hypocalcemia; E87.6 Hypokalemia; Z83.3 Family history of diabetes mellitus; Z68.33 Body mass index [BMI] 33.0-33.9, adult
CPT/HCPCS: 36245; 36561; 71045; 73718; 76000; 80048; 80202; 81001; 81002; 82550; 82962; 83735; 83880; 83970; 84100; 84484; 84703; 85025; 85610; 85730; 86850; 86900; 86901; 86923; 87081; 87086; 87340; 90935; 90945; 93005; 93925; 93971; 96374; 96375; 99285; J0610; J0636; J0780; J0885; J1644; J2250; J2405; J2543; J2765; J3010; J3370; J3475; J3480; J3490; J7030; J7040; J7050; J7060; P9016; Q0162; 36415-L1; 36415-TC

== ENCOUNTER 2024-10-16 09:08 | Inpatient (IN) | payer OTHER ==
[~2024-10-16] VITALS: Ht 167.6 cm; Wt 76.4 kg
[~2024-10-16 09:08] MED LIST: ACET-2247 PO; AMLO-258 PO; BUME1TAB50 PO; CALC0.5C11 PO; CALC500T37 PO; CLON0.1T2 PO; FOLI0.8T54 PO; INSU100V SQ; ONDA-104 PO; PANT-31 PO; PHOSLOC PO; PIPE2.2562 IV; PROC5TAB54 IVP; VANC125C19 IV
[2024-10-16 09:35] LABS: BASOPHILS % (AUTO) 0.7 % (0.0-2.0); EOSINOPHILS % (AUTO) 3.4 % (1.0-6.0); HEMATOCRIT 35.3 % (36-46); LYMPHOCYTES % (AUTO) 16.9 % (22.0-44.0); MEAN CORPUSCULAR HEMOGLOBIN 29.8 pg (26.0-34.0); MEAN CORPUSCULAR HGB CONC 33.9 G/dL (31.0-37.0); MEAN CORPUSCULAR VOLUME 88 fL (80-100); MONOCYTES # (AUTO) 0.6 K/uL (0.1-1.0); MONOCYTES % (AUTO) 10.6 % (2.0-9.0); NEUTROPHILS % (AUTO) 68.4 % (40.0-70.0); PLATELET COUNT (AUTO) 224 K/uL (150-450); RED BLOOD CELL COUNT(AUTO) 4.02 MIL/uL (4.00-5.20); RED CELL DISTRIBUTION WIDTH 14.8 % (11.5-14.5); WHITE BLOOD COUNT (AUTO) 5.9 K/uL (4.5-11.0)
[2024-10-16 09:46] LABS: CREATININE 6.12 mg/dL (0.60-1.30); POTASSIUM 3.9 mmol/L (3.5-5.1)
[2024-10-16] MEDS ORDERED: MORPHINE SULFATE 2 MG/ML SYRINGE IVP PRN (13:15)
[2024-10-16] MEDS ORDERED: ONDANSETRON HCL 4 MG/2 ML VIAL IVP PRN (13:15)
[2024-10-16] MEDS ORDERED: HYDROCODONE/ACETAMINOPHEN 5-325 MG TABLET PO PRN (13:15)
[2024-10-16] MEDS ORDERED: MAGNESIUM HYDROXIDE SUSPENSION 30 ML UDCUP PO PRN (13:15)
[2024-10-16] MEDS ORDERED: BISACODYL 10 MG RECTAL RECTAL SUPPOSITORY PR PRN (13:15)
[2024-10-16] MEDS ORDERED: ZOLPIDEM TARTRATE 5 MG TABLET PO PRN (13:15)
[2024-10-16] MEDS: HEPARIN SODIUM,PORCINE 5,000 UNITS/ML VIAL SQ SCH (15:28)
[2024-10-16] MEDS: CALCIUM ACETATE 667 MG CAPSULE PO SCH (18:17)
[2024-10-16 20:00] VITALS: BP 155/56; PULSE 66; RESP 18; TEMP 97.5; O2SAT 99
[2024-10-16] MEDS: DOCUSATE SODIUM 100 MG CAPSULE PO SCH (20:21)
[2024-10-16] MEDS: ACETAMINOPHEN 325 MG TABLET PO PRN (20:28)
[2024-10-16] MEDS: BUMETANIDE 1 MG TABLET PO SCH (22:29)
[2024-10-17] VITALS (16 sets, daily range): BP systolic 130–191; BP diastolic 73–96; PULSE 61–83; RESP 18–20; TEMP 98.1–98.4; O2SAT 97–98
[2024-10-17] MEDS: CloNIDine HCL 0.1 MG TABLET PO PRN (03:47)
[2024-10-17 07:55] LABS: BASOPHILS % (AUTO) 0.8 % (0.0-2.0); EOSINOPHILS % (AUTO) 4.2 % (1.0-6.0); HEMATOCRIT 32.7 % (36-46); LYMPHOCYTES # (AUTO) 1.2 K/uL (1.0-4.8); LYMPHOCYTES % (AUTO) 23.4 % (22.0-44.0); MEAN CORPUSCULAR HEMOGLOBIN 29.7 pg (26.0-34.0); MEAN CORPUSCULAR HGB CONC 33.7 G/dL (31.0-37.0); MEAN CORPUSCULAR VOLUME 88 fL (80-100); MONOCYTES # (AUTO) 0.6 K/uL (0.1-1.0); MONOCYTES % (AUTO) 11.6 % (2.0-9.0); PLATELET COUNT (AUTO) 194 K/uL (150-450); RED BLOOD CELL COUNT(AUTO) 3.72 MIL/uL (4.00-5.20); RED CELL DISTRIBUTION WIDTH 14.7 % (11.5-14.5)
[2024-10-17 07:57] LABS: CALCIUM, TOTAL 7.6 mg/dL (8.8-10.5); CREATININE 7.83 mg/dL (0.60-1.30); POTASSIUM 3.9 mmol/L (3.5-5.1)
[2024-10-17] MEDS: AmLODIPine BESYLATE 10 MG TABLET PO SCH (08:11)
[2024-10-17] MEDS: FOLIC ACID/VIT B COMPLEX AND C TABLET PO SCH (08:13)
[2024-10-17] MEDS: PANTOPRAZOLE SODIUM 40 MG DR TABLET PO SCH (08:13)
[2024-10-17] MEDS: paricalcitoL 1 MCG CAPSULE PO SCH (08:13)
[2024-10-17] MEDS ORDERED: BUPIVACAINE 0.25%/EPI 1:200,000/PF 10 ML VIAL ONE (11:10)
[2024-10-17] MEDS ORDERED: SODIUM CHLORIDE 0.9% 1,000 ML ONE ×2 (11:11→18:09)
[2024-10-17] MEDS ORDERED: FentaNYL CITRATE PF 100 MCG/2 ML VIAL ONE (12:00)
[2024-10-17] MEDS ORDERED: MIDAZOLAM HCL 2 MG/2 ML VIAL ONE (12:00)
[2024-10-17] MEDS ORDERED: BUPIVACAINE HCL/PF 0.5% 30 ML VIAL ONE (12:16)
[2024-10-17] MEDS ORDERED: MEPERIDINE-PF 25 MG/ML VIAL IVP PRN (12:30)
[2024-10-17] MEDS ORDERED: HYDROmorphone HCL 2 MG/ML SYRINGE IVP PRN (12:30)
[2024-10-17] MEDS ORDERED: FentaNYL CITRATE PF 100 MCG/2 ML VIAL IVP PRN (12:30)
[2024-10-17] MEDS: LIDOCAINE/PF 2% 5 ML VIAL ONE (12:48)
[2024-10-17] MEDS ORDERED: LIDOCAINE/PF 1% 2 ML VIAL ONE (18:00)
[2024-10-17] MEDS: HEPARIN SODIUM,PORCINE 1,000 UNITS/ML VIAL IVCATH ONE ×2 (23:14)
[2024-10-18 05:24] VITALS: BP 166/76; PULSE 67; RESP 18; TEMP 98.4; O2SAT 98
[2024-10-18 08:43] VITALS: BP 166/76; PULSE 66; RESP 18; TEMP 97.9; O2SAT 99
[2024-10-18 08:43] LABS: BASOPHILS % (AUTO) 0.3 % (0.0-2.0); EOSINOPHILS % (AUTO) 2.5 % (1.0-6.0); HEMATOCRIT 32.5 % (36-46); LYMPHOCYTES % (AUTO) 16.8 % (22.0-44.0); MEAN CORPUSCULAR HEMOGLOBIN 29.7 pg (26.0-34.0); MEAN CORPUSCULAR HGB CONC 33.9 G/dL (31.0-37.0); MEAN CORPUSCULAR VOLUME 88 fL (80-100); MONOCYTES # (AUTO) 0.5 K/uL (0.1-1.0); MONOCYTES % (AUTO) 7.6 % (2.0-9.0); NEUTROPHILS # (AUTO) 4.5 K/uL (1.8-7.7); NEUTROPHILS % (AUTO) 72.8 % (40.0-70.0); PLATELET COUNT (AUTO) 198 K/uL (150-450); RED CELL DISTRIBUTION WIDTH 14.6 % (11.5-14.5); WHITE BLOOD COUNT (AUTO) 6.2 K/uL (4.5-11.0)
[2024-10-18 08:51] LABS: CALCIUM, TOTAL 7.8 mg/dL (8.8-10.5); CREATININE 6.14 mg/dL (0.60-1.30); POTASSIUM 4.4 mmol/L (3.5-5.1)
[2024-10-18] MEDS: OXYGEN THERAPY IH SCH (09:54)
[2024-10-18 13:02] VITALS: BP 150/72; PULSE 68; O2SAT 98
[2024-10-18] MEDS ORDERED: CARV3 PO (13:32)
[2024-10-18] MEDS ORDERED: PARI1CAP11 PO (13:32)
[2024-10-18] MEDS ORDERED: carvediloL 3.125 MG TABLET PO SCH (21:00)
== END 2024-10-18 20:45 | DRG 981 ==
LOC: EMS 09:12 → EDH 13:10 → 6S 20:03
PROVIDERS: ADMIT Internal Medicine; ATTEND Internal Medicine
PROC: 5A1D70Z Performance of Urinary Filtration, Intermittent, Less than 6 Hours Per Day (ICD-10-PCS; 2024-10-17)
PROC: 0WPG33Z Removal of Infusion Device from Peritoneal Cavity, Percutaneous Approach (ICD-10-PCS; principal; 2024-10-17 12:00)
DX: I13.2 Hypertensive heart and chronic kidney disease with heart failure and with stage 5 chronic kidney disease, or end stage renal disease (principal); N18.6 End stage renal disease; E46 Unspecified protein-calorie malnutrition; R64 Cachexia; N25.81 Secondary hyperparathyroidism of renal origin; I50.9 Heart failure, unspecified; K21.9 Gastro-esophageal reflux disease without esophagitis; E83.51 Hypocalcemia; E83.39 Other disorders of phosphorus metabolism; E11.22 Type 2 diabetes mellitus with diabetic chronic kidney disease; I16.0 Hypertensive urgency; R62.7 Adult failure to thrive; E78.5 Hyperlipidemia, unspecified; Z82.49 Family history of ischemic heart disease and other diseases of the circulatory system; Z79.899 Other long term (current) drug therapy; Z99.2 Dependence on renal dialysis; Z68.27 Body mass index [BMI] 27.0-27.9, adult
CPT/HCPCS: 80048; 84703; 85025; 87081; 87340; 88300; 90935; 99285; J1644; J2250; J3010; J3490; J7030

== ENCOUNTER 2025-01-22 09:13 | Inpatient (IN) | payer OTHER ==
[~2025-01-22] VITALS: Ht 157.5 cm; Wt 76.3 kg
[~2025-01-22 09:13] MED LIST changes: -ACET-2247 PO; +CARV3 PO; +PARI1CAP11 PO; -PIPE2.2562 IV; -PROC5TAB54 IVP; -VANC125C19 IV
[2025-01-22] MEDS ORDERED: CARV12.530 PO (09:43)
[2025-01-22] MEDS ORDERED: TRAZ-252 PO (09:43)
[2025-01-22] MEDS ORDERED: CARV25 PO (09:43)
[2025-01-22] MEDS ORDERED: SERT-158 PO (09:43)
[2025-01-22] MEDS ORDERED: PRED5DRO25 OS (09:43)
[2025-01-22] MEDS ORDERED: SODI10PO3 PO (09:43)
[2025-01-22] MEDS ORDERED: HYDR50TA36 PO ×2 (09:43)
[2025-01-22] MEDS ORDERED: CALC0.253 PO (09:43)
[2025-01-22 09:49] LABS: PLATELET COUNT (AUTO) 216 K/uL (150-450); RED BLOOD CELL COUNT(AUTO) 3.73 MIL/uL (4.00-5.20); RED CELL DISTRIBUTION WIDTH 13.6 % (11.5-14.5); WHITE BLOOD COUNT (AUTO) 5.3 K/uL (4.5-11.0)
[2025-01-22 09:54] LABS: CALCIUM, TOTAL 8.2 mg/dL (8.8-10.5); CREATININE 5.43 mg/dL (0.60-1.30); GLOMERULAR FILTR. RATE CALC 9.0 mL/min (>60); GLUCOSE,RANDOM 175.0 mg/dL (70-110); SODIUM SERUM 135.0 mmol/L (136-145); UREA NITROGEN, BLOOD 43.0 mg/dL (7-18)
[2025-01-22] MEDS ORDERED: ACETAMINOPHEN 325 MG TABLET PO PRN (11:00)
[2025-01-22] MEDS ORDERED: ONDANSETRON HCL 4 MG/2 ML VIAL IVP PRN (11:00)
[2025-01-22] MEDS ORDERED: OxyCODONE HCL/ACETAMINOPHEN 5-325 MG TABLET PO PRN (11:00)
[2025-01-22] MEDS ORDERED: BISACODYL 10 MG RECTAL RECTAL SUPPOSITORY PR PRN (11:00)
[2025-01-22 13:17] VITALS: BP 128/77; PULSE 68; RESP 18; TEMP 98.2; O2SAT 99
[2025-01-22] MEDS: HEPARIN SODIUM,PORCINE 5,000 UNITS/ML VIAL SQ SCH (15:31)
[2025-01-22 19:44] VITALS: BP 130/71; PULSE 70; RESP 18; TEMP 98.4; O2SAT 99
[2025-01-22] MEDS: PrednisoLONE ACETATE 1% 5 ML OPHTHALMIC SUSPENSION OS SCH (20:35)
[2025-01-22] MEDS: DOCUSATE SODIUM 100 MG CAPSULE PO SCH (20:35)
[2025-01-23] VITALS (12 sets, daily range): BP systolic 110–165; BP diastolic 66–92; PULSE 62–74; RESP 18–20; TEMP 97.3–97.9; O2SAT 96–100
[2025-01-23] MEDS: ZOLPIDEM TARTRATE 5 MG TABLET PO PRN (00:08)
[2025-01-23] MEDS: FAMOTIDINE 20 MG TABLET PO SCH (08:01)
[2025-01-23] MEDS ORDERED: SODIUM CHLORIDE 0.9% 2,000 ML ONE (10:41)
[2025-01-23] MEDS ORDERED: INSULIN LISPRO 100 UNITS/ML SQ PRN (11:45)
[2025-01-23] MEDS ORDERED: DEXTROSE 50%-WATER 25 GM/50 ML SYRINGE IVP PRN (11:45)
[2025-01-23] MEDS: CALCIUM ACETATE 667 MG CAPSULE PO SCH (12:16)
[2025-01-23] MEDS: HEPARIN SODIUM,PORCINE 1,000 UNITS/ML VIAL IVCATH ONE ×2 (15:02)
[2025-01-23] MEDS: ALBUMIN HUMAN 25%-12.5GM/50ML IV BOTTLE IV PRN (15:03)
[2025-01-24 04:18] VITALS: BP 142/79; PULSE 70; RESP 18; TEMP 97.7; O2SAT 100
[2025-01-24 08:46] VITALS: BP 161/89; PULSE 75; RESP 20; TEMP 97.7; O2SAT 100
[2025-01-24 09:25] VITALS: BP 127/74; PULSE 72; RESP 18; O2SAT 100
[2025-01-24 19:25] VITALS: BP 112/61; PULSE 73; RESP 18; TEMP 98.2; O2SAT 98
[2025-01-25] VITALS (13 sets, daily range): BP systolic 96–176; BP diastolic 66–113; PULSE 61–87; RESP 18–20; TEMP 97.7–98.4; O2SAT 96–98
[2025-01-25] MEDS ORDERED: HEPARIN SODIUM,PORCINE 1,000 UNITS/ML VIAL ONE (11:07)
[2025-01-25] MEDS ORDERED: HEPARIN SODIUM,PORCINE 1,000 UNITS/ML VIAL IVCATH ONE (19:00)
[2025-01-25 19:30] LABS: CALCIUM, TOTAL 8.3 mg/dL (8.8-10.5); CREATININE 4.55 mg/dL (0.60-1.30); GLOMERULAR FILTR. RATE CALC 11.0 mL/min (>60); GLUCOSE,RANDOM 106.0 mg/dL (70-110); SODIUM SERUM 135.0 mmol/L (136-145); UREA NITROGEN, BLOOD 37.0 mg/dL (7-18)
[2025-01-25] MEDS: HEPARIN SODIUM,PORCINE 1,000 UNITS/ML VIAL IVCATH ONE ×2 (19:39)
[2025-01-26] VITALS (15 sets, daily range): BP systolic 71–151; BP diastolic 51–96; PULSE 68–83; RESP 17–18; TEMP 97.9–98.4; O2SAT 95–99
[2025-01-26] MEDS ORDERED: SODIUM CHLORIDE 0.9% 1,000 ML ONE ×2 (06:07)
[2025-01-26 07:28] LABS: CREATININE 6.69 mg/dL (0.60-1.30); GLOMERULAR FILTR. RATE CALC 7.0 mL/min (>60)
[2025-01-26] MEDS: HEPARIN SODIUM,PORCINE 1,000 UNITS/ML VIAL IVCATH ONE ×2 (10:00)
[2025-01-26] MEDS: SODIUM CHLORIDE 0.9% 250 ML IV ONE ×2 (11:30→16:24)
[2025-01-26] MEDS ORDERED: HEPARIN SODIUM,PORCINE 1,000 UNITS/ML VIAL ONE (12:00)
[2025-01-26] MEDS ORDERED: SODIUM CHLORIDE 0.9% 250 ML IV ONE ×2 (13:18→13:51)
[2025-01-27 04:00] VITALS: BP 110/73; PULSE 72; RESP 18; TEMP 98.6; O2SAT 98
[2025-01-27 05:18] VITALS: BP 140/78; PULSE 84; RESP 18; TEMP 97.7; O2SAT 100
[2025-01-27 09:12] VITALS: BP 150/80; RESP 18; O2SAT 100
[2025-01-27 09:18] VITALS: BP 159/93; PULSE 79; RESP 18; TEMP 98.1; O2SAT 100
[2025-01-27 20:00] VITALS: BP 156/77; PULSE 75; RESP 18; TEMP 98.1; O2SAT 96
== END 2025-01-28 04:28 | disposition left against medical advice (07) | DRG 640 ==
LOC: EMS 09:13 → EDH 10:54 → 6S 12:21
PROVIDERS: ADMIT Internal Medicine; ATTEND Internal Medicine
PROC: 5A1D70Z Performance of Urinary Filtration, Intermittent, Less than 6 Hours Per Day (ICD-10-PCS; principal; 2025-01-23)
PROC: 5A1D70Z Performance of Urinary Filtration, Intermittent, Less than 6 Hours Per Day (ICD-10-PCS; 2025-01-25)
PROC: 5A1D70Z Performance of Urinary Filtration, Intermittent, Less than 6 Hours Per Day (ICD-10-PCS; 2025-01-26)
DX: E87.70 Fluid overload, unspecified (principal); N18.6 End stage renal disease; R64 Cachexia; I12.0 Hypertensive chronic kidney disease with stage 5 chronic kidney disease or end stage renal disease; E46 Unspecified protein-calorie malnutrition; J81.1 Chronic pulmonary edema; N25.81 Secondary hyperparathyroidism of renal origin; E87.5 Hyperkalemia; E11.22 Type 2 diabetes mellitus with diabetic chronic kidney disease; E83.39 Other disorders of phosphorus metabolism; E83.51 Hypocalcemia; R62.7 Adult failure to thrive; D63.1 Anemia in chronic kidney disease; I95.9 Hypotension, unspecified; D64.9 Anemia, unspecified; Z68.30 Body mass index [BMI] 30.0-30.9, adult; Z83.3 Family history of diabetes mellitus; Z99.2 Dependence on renal dialysis
CPT/HCPCS: 80048; 82565; 84520; 84703; 85025; 87081; 87340; 90935; 99285; J1644; J7030; J7050

== ENCOUNTER 2025-02-24 17:15 | Inpatient (IN) | payer OTHER ==
[~2025-02-24] VITALS: Ht 160 cm; Wt 82.0 kg
[~2025-02-24 17:15] MED LIST changes: -AMLO-258 PO; +CALC0.253 PO; -CALC0.5C11 PO; -CALC500T37 PO; +CARV12.530 PO; +CARV25 PO; -CARV3 PO; -CLON0.1T2 PO; +HEPARIN SODIUM,PORCINE 1,000 UNITS/ML VIAL ONE; +HYDR50TA36 PO; -INSU100V SQ; -ONDA-104 PO; -PARI1CAP11 PO; +PRED5DRO25 OS; +SERT-158 PO; +SODI10PO3 PO; +TRAZ-252 PO
[2025-02-24] MEDS ORDERED: 0.9% SODIUM CHLORIDE 10 ML SYRINGE IVP PRN (17:30)
[2025-02-24] MEDS: *CLINICAL-MEROPENEM DOSING CLINICAL ONE ×2 (17:46→21:14)
[2025-02-24 17:51] LABS: PLATELET COUNT (AUTO) 295 K/uL (150-450); RED BLOOD CELL COUNT(AUTO) 3.34 MIL/uL (4.00-5.20); RED CELL DISTRIBUTION WIDTH 12.5 % (11.5-14.5); WHITE BLOOD COUNT (AUTO) 8.5 K/uL (4.5-11.0)
[2025-02-24 18:01] LABS: CALCIUM, TOTAL 8.5 mg/dL (8.8-10.5); CREATININE 5.03 mg/dL (0.60-1.30); GLOMERULAR FILTR. RATE CALC 10 mL/min (>60); GLUCOSE,RANDOM 183 mg/dL (70-110); SODIUM SERUM 137 mmol/L (136-145); UREA NITROGEN, BLOOD 34 mg/dL (7-18)
[2025-02-24 18:07] LABS: ASPARTATE AMINOTRANSFERASE 35 U/L (15-37); CREATINE KINASE, TOTAL ONLY 58 U/L (26-192); TOTAL PROTEIN, SERUM 8.4 g/dL (6.4-8.2)
[2025-02-24 18:10] LABS: LACTIC ACID 0.5 mmol/L (0.4-2.0)
[2025-02-24 18:11] LABS: TROPONIN I-HIGH SENSITIVITY 8 ng/L (<51)
[2025-02-24] MEDS: MEROPENEM 1 GM in SODIUM CHLORIDE 0.9% 50 ML IV ONE (18:59)
[2025-02-24] MEDS ORDERED: HYDROCODONE/ACETAMINOPHEN 5-325 MG TABLET PO PRN (20:45)
[2025-02-24] MEDS ORDERED: ONDANSETRON HCL 4 MG/2 ML VIAL IVP PRN (20:45)
[2025-02-24] MEDS ORDERED: BISACODYL 10 MG RECTAL RECTAL SUPPOSITORY PR PRN (20:45)
[2025-02-24] MEDS ORDERED: MORPHINE SULFATE 4 MG/ML SYRINGE IVP PRN (20:45)
[2025-02-24] MEDS ORDERED: MAGNESIUM HYDROXIDE SUSPENSION 30 ML UDCUP PO PRN (20:45)
[2025-02-24] MEDS ORDERED: ZOLPIDEM TARTRATE 5 MG TABLET PO PRN (20:45)
[2025-02-24] MEDS ORDERED: ACETAMINOPHEN 325 MG TABLET PO PRN (20:45)
[2025-02-24] MEDS: DOCUSATE SODIUM 100 MG CAPSULE PO SCH (21:00)
[2025-02-24 21:03] LABS: COVID AG,FIA SOURCE NASAL SWAB
[2025-02-24 21:29] LABS: SARS-COV2 (COVID) ANTIGEN,FIA Negative (Negative)
[2025-02-24] MEDS: BUMETANIDE 1 MG TABLET PO SCH (21:54)
[2025-02-24 23:38] VITALS: BP 134/57; PULSE 71; RESP 18; TEMP 98.1; O2SAT 100
[2025-02-25] VITALS (11 sets, daily range): BP systolic 107–170; BP diastolic 58–87; PULSE 62–75; RESP 17–18; TEMP 97.3–98.8; O2SAT 98–99
[2025-02-25] MEDS: HEPARIN SODIUM,PORCINE 5,000 UNITS/ML VIAL SQ SCH (00:42)
[2025-02-25] MEDS ORDERED: SODIUM CHLORIDE 0.9% 250 ML IV ONE (06:24)
[2025-02-25 06:27] LABS: PLATELET COUNT (AUTO) 242 K/uL (150-450); RED BLOOD CELL COUNT(AUTO) 2.98 MIL/uL (4.00-5.20); RED CELL DISTRIBUTION WIDTH 12.5 % (11.5-14.5); WHITE BLOOD COUNT (AUTO) 6.4 K/uL (4.5-11.0)
[2025-02-25 06:38] LABS: CALCIUM, TOTAL 8.1 mg/dL (8.8-10.5); CREATININE 6.9 mg/dL (0.60-1.30); GLOMERULAR FILTR. RATE CALC 7.0 mL/min (>60); GLUCOSE,RANDOM 118.0 mg/dL (70-110); SODIUM SERUM 138.0 mmol/L (136-145); UREA NITROGEN, BLOOD 48.0 mg/dL (7-18)
[2025-02-25] MEDS: MEROPENEM 500 MG in SODIUM CHLORIDE 0.9% 50 ML IV SCH (06:48)
[2025-02-25] MEDS ORDERED: PANTOPRAZOLE SODIUM 40 MG DR TABLET PO SCH (09:00)
[2025-02-25] MEDS: FOLIC ACID/VIT B COMPLEX AND C TABLET PO SCH (09:38)
[2025-02-25] MEDS: PANTOPRAZOLE SODIUM 40 MG DR TABLET PO SCH (09:38)
[2025-02-25] MEDS: SODIUM ZIRCONIUM CYCLOSILICATE 10 GM POWDER PACKET PO SCH (09:38)
[2025-02-25] MEDS: SERTRALINE HCL 50 MG TABLET PO SCH (09:38)
[2025-02-25] MEDS: CALCIUM ACETATE 667 MG CAPSULE PO SCH (09:40)
[2025-02-25] MEDS ORDERED: MEROPENEM 500 MG in SODIUM CHLORIDE 0.9% 50 ML IV SCH (13:00)
[2025-02-26 07:14] LABS: PLATELET COUNT (AUTO) 256 K/uL (150-450); RED BLOOD CELL COUNT(AUTO) 3.24 MIL/uL (4.00-5.20); RED CELL DISTRIBUTION WIDTH 12.5 % (11.5-14.5); WHITE BLOOD COUNT (AUTO) 5.8 K/uL (4.5-11.0)
[2025-02-26 07:25] LABS: CALCIUM, TOTAL 8.4 mg/dL (8.8-10.5); CREATININE 5.89 mg/dL (0.60-1.30); GLOMERULAR FILTR. RATE CALC 8.0 mL/min (>60); GLUCOSE,RANDOM 115.0 mg/dL (70-110); SODIUM SERUM 136.0 mmol/L (136-145); UREA NITROGEN, BLOOD 44.0 mg/dL (7-18)
[2025-02-26 07:28] VITALS: BP 130/65; PULSE 71; RESP 18; TEMP 98.1; O2SAT 100
[2025-02-26] MEDS ORDERED: [UNRECOGNIZED DRUG - CODE] SQ (12:36)
[2025-02-26] MEDS ORDERED: ACET-2247 PO (12:38)
[2025-02-26] MEDS ORDERED: ZOLP-280 PO (12:39)
[2025-02-26] MEDS ORDERED: MEROPENEM 500 MG in SODIUM CHLORIDE 0.9% 50 ML IV SCH (16:00)
[2025-02-27] MEDS ORDERED: EPOETIN ALFA 10,000 UNITS/ML VIAL SQ SCH (09:00)
== END 2025-02-26 19:30 | DRG 871 ==
LOC: EMS 17:15 → EDH 20:33 → 6S 23:21
PROVIDERS: ADMIT Internal Medicine; ATTEND Internal Medicine
PROC: 5A1D70Z Performance of Urinary Filtration, Intermittent, Less than 6 Hours Per Day (ICD-10-PCS; principal; 2025-02-25)
DX: A41.9 Sepsis, unspecified organism (principal); N18.6 End stage renal disease; I13.2 Hypertensive heart and chronic kidney disease with heart failure and with stage 5 chronic kidney disease, or end stage renal disease; E83.39 Other disorders of phosphorus metabolism; E83.51 Hypocalcemia; D63.1 Anemia in chronic kidney disease; Z99.2 Dependence on renal dialysis; E66.9 Obesity, unspecified; N25.81 Secondary hyperparathyroidism of renal origin; Z20.822 Contact with and (suspected) exposure to COVID-19; I50.9 Heart failure, unspecified; Z88.8 Allergy status to other drugs, medicaments and biological substances; Z79.899 Other long term (current) drug therapy; Z68.32 Body mass index [BMI] 32.0-32.9, adult
CPT/HCPCS: 71045; 80048; 80076; 82550; 83605; 83880; 84145; 84484; 84703; 85025; 87040; 87340; 90935; 93005; 99285; J0885; J1644; J2185; J7050; 36415-L1; 36415-TC